=== PATIENT | female | born 1940 | race Caucasian/White ===

== ENCOUNTER 2025-02-18 19:12 | Outpatient (CLI) | payer MEDICARE, BC, SELFPAY | END 2025-02-18 19:13 | disposition home or self-care (01) | LOC: AMB 02-19 12:59 | PROVIDERS: PCP Family Medicine; Visit Provider Emergency Medicine Emergency Medical Services | DX: R42 Dizziness and giddiness (principal); R25.9 Unspecified abnormal involuntary movements | CPT/HCPCS: A0425; A0429 ==

== ENCOUNTER 2025-02-18 19:43 | Emergency (ER) | payer MEDICARE, BC, SELFPAY ==
--- OUTSIDE RECORDS SUMMARY | 2025-02-18 19:45 | XMS_ITS | Clinical Summary ---
Author Organization [facility] Address [address] [place] [address] Care Team Providers Care Cargo Bracer Name Role Phone Latha Jiang DO Primary Care Provider [phone] Allergies No known active allergies Medications calcium combo no.2-vit. D3 600 mg-12.5 mcg (500 unit) Extended-Release tablet Take 2 Tablets by mouth once daily. 3 Active psyllium husk 3.4 gram/5.4 gram powd Mix 1 Dose in liquid then take by mouth once daily. 3 Active triamcinolone (ARISTOCORT; KENALOG) 0.1 % creamIndications :Rectal irritation Apply topically to affected area(s) three times daily. 80 g 3 4 Active latanoprost (XALATAN) 0.005 % ophthalmic solution INSTILL ONE DROP INTO RIGHT EYE AT BEDTIME* 4 Active famotidine (PEPCID) 20 mg tabletIndication s:Gastroesophage al reflux disease without esophagitis Take 1 Tablet (20 mg) by mouth once daily. 90 Tablet 3 5 Active traZODone (DESYREL) 50 mg tabletIndication s:Insomnia, idiopathic Take 2 Tablets (100 mg) by mouth at bedtime. 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 Overview (09/05/2023): Squamous Cell carcinmoa - treated with surgery, chemo, radiation [facility] Gastroesophageal reflux disease 07/12/2010 Overview (09/05/2023): EGD 06/2010 Reactive gastropathy EGD 08/2015 normal Breast cancer 10/21/1988 Overview (11/21/2020): right side Lichen simplex chronicus Osteopenia after menopause Overview (12/19/2020): stable Dexa scans in 2004, 2020 Encounters Date Type Department Care Team Description 01/27/[address] [place] [address] Dasha Thomas PA Results 01/27/2025 Patient Outreach [address] [place] [phone] Dasha Thomas PA Results 01/27/2025 Orders Only [address] [facility] [phone] Dasha Thomas PA <No scans attached> 01/27/2025 Telephone [facility] [address] [place] [phone] Erickson Starr MD Results 01/25/2025 1:43 PM CDT - 01/25/2025 11:59 PM CDT Hospital Encounter [facility] [address] [place] [address] Dasha Thomas PA H/O breast reconstruction; Hx of breast cancer; Rupture of implant of left breast, initial encounter 01/25/2025 Travel 01/18/2025 8:21 AM CDT - 01/18/2025 11:59 PM CDT Hospital Encounter [facility] [address] [place] [address] Dasha Thomas PA H/O breast reconstruction; Hx of breast cancer; Rupture of implant of left breast, initial encounter 01/18/2025 Travel 01/11/2025 Orders Only [facility] [address] [place] [address] Dasha Thomas PA <No scans attached> 01/07/2025 10:00 AM CDT Ancillary Procedure [facility] [address] [place] [phone] 01/07/2025 Travel 12/25/2024 1:30 PM DIVER ASSISTANT Office Visit [facility] [address] [place] [address] [address] [place] [address] Noni Duarte MD Consult (Left implant has shifted up, very uncomfortable. ) 12/23/2024 Travel 12/22/2024 2:30 PM DIVER ASSISTANT Office Visit [facility] [address] [place] [address] Latha Jiang, Breast Problem (LEFT breast implant seems larger then right ) 12/22/2024 Travel 12/17/2024 Travel from Last 3 Months Immunizations Immunization Administration Dates Next Due Influenza, High-dose Inactivated 07/19/2014 Influenza, IIV3 (Age >=3 years) 08/20/2007,09/21,09/15/2002 Influenza, Inactivated AIIV4 (Age 65+ Years) Preserv Free 11/14/2020 Influenza, Inactivated IIV3 (Age 65+ Years) Preserv Free 08/03/2019 Pneumococcal Poly,23-Valent (Pneumovax) 04/14/20 08 TD, UNSPECIFIED 12/03/2000 Td (Age >=7 Years) 12/03/2000 Td, Preservative Free (age >= 7 Years) 4 Tdap 08/03/2019 Zoster (Shingrix-RZV, recombinant) 11/24/2019, Family History Medical History Relation Name Comments Osteoarthritis Mother Relation Name Status Comments Brother Alive Father (Age 90) old age Mother (Age 87) Osteoarthr itis Sister 1 Alive Sister 2 Alive Sister 3 Alive Sister 4 Alive Sister 5 Alive Social History Tobacco Use Types Packs/Day Years Used Date Smoking Tobacco: Never Passive Smoke Exposure: Past Smokeless Tobacco: Never Tobacco Cessation:Counseling Given: Yes Comments:many years ago as a teen Alcohol Use Standard Drinks/Week Comments No 0 (1 standard drink = 0.6 oz pur e alcohol) PHQ-2 Answer Date Recorded PHQ-2 TOTAL SCORE 0 10/27/2024 Social Connections Answer Date Recorded Do you often feel lonely or isolated from those around you? 0 10/26/2024 Financial Resource Strain Answer Date R ecorded Difficulty of Paying Living Expenses 3 10/26/2024 Difficulty of Paying Living Expenses Not on file 10/26/2024 Food Insecurity Answer Date Recorded Do you worry your food will run out before you are able to buy more? 1 10/26/2024 Transportation Needs Answer Date Record ed Does lack of transportation keep you from medica l appointments? 1 10/26/2024 Does lack of transportation keep you from work, meetings or getting things that you need? 1 10/26/2024 Housing Stability Answer Date Recorded What is your housing situation today? 1 10/26/2024 Utilities Answer Date Recorded Do you have trouble paying f or utilities (for example, heat, electricity, water, phone)? 1 10/26/2024 Comments No Sex and Gender Information Value Date Recorded Sex Assigned at Not on file Legal Sex Female 5:24 AM DIVER ASSISTANT Gender Identity Not on file Sexual Orientation Not on file Occupation Industry Job Start Date Job End Date Housekeeping Not on file Not on file Not on file Obstetrics History Last Filed Vital Signs Vital Sign Reading Time Taken Comments Blood Pressure 137/84 12/25/2024 1:19 PM DIVER ASSISTANT Pulse 70 12/25/2024 1:19 PM DIVER ASSISTANT Temperature 36.6 C (97.9 F) 01/22/2022 9:57 AM CDT Respiratory Rate 16 05/29/2021 8:37 AM CDT Oxygen Saturation 98% 12/25/2024 1:19 PM DIVER ASSISTANT Inhaled Oxygen Concentration - - Weight 60.7 kg (133 lb 14.4 oz) 12/22/2024 2:33 PM DIVER ASSISTANT Height 160 cm (5' 3) 10/27/2024 2:59 PM DIVER ASSISTANT Body Mass Index 23.72 10/27/2024 2:59 PM DIVER ASSISTANT Plan of Treatment Upcoming Encounters Date Type Department Care Team (Late st Contact Info) Description 03/11/2025 1:45 PM CDT Phone Office Visit [facility] [address] [place] [phone] Dasha Thomas PA [address] [facility] [address] [place] [address] 03/26/2025 3:15 PM CDT Office Visit [facility] [address] [place] [address] [address] [place] [address] Dasha Thomas PA [address] [facility] [address] [place] [address] Scheduled Procedures Name Priority Associated Diagnoses Date/Ti me SURGICAL PROCEDURE (TYPE PROCEDURE DESCRIPTION BELOW) Tier 4 Extrusion of breast implant, initial encounter Breast pain H/O breast reconstruction Capsular contracture of breast implant, initial encounter Health Maintenance Due Date Last Done Comments Pneumococcal series for age 50+ (2 of 2 - PCV) 04/14/2009 04/14/2008 RSV vaccine for adults or (1 - 1-dose 75+ series) 2015 COVID-19 vaccine series ( - season) 2024 10/19/2021, 12/27/2020 Influenza Vaccine (Season Ended) 2025 11/14/2020, 08/03/2019, 07/19/2014, Additional history exists BMI (ht and wt on same day) for age 18+ 10/27/2025 10/27/2024, 12/09/2023, 09/05/2023, Additional history exists Depression screening for age 12+ 10/27/2025 10/27/2024, 12/09/2023, 12/07/2022, Additional history exists Medicare Wellness for age 65+ 10/28/2025, 12/09/2023, 12/06/2022, Additional history exists Tetanus booster 08/03/2029 08/03/2019, 06/22, 12/03/2000, Additional history exists Tdap Completed 08/03/2019 Zoster (shingles) series for age 50+ Completed 11/24/2019, 08/03/2019 DEXA/DXA scan for age 65+ Completed 11/21/2020 Procedures Procedure Name Priority Date/Time Associated Diagnosis Comments US BIOPSY LYMPH NODE BREAST CENTER [facility] 01/25/2025 3:14 PM CDT H/O breast reconstruction Hx of breast cancer Rupture of implant of left breast, initial encounter PATH TISSUE EXAM Today 01/25/2025 2:50 PM CDT US AXILLA RIGHT BREAST CENTER [facility] 01/18/2025 8:44 AM CDT H/O breast reconstruction Hx of breast cancer Rupture of implant of left breast, initial encounter US BREAST UNILATERAL RIGHT LIMITED [facility] 01/18/2025 8:43 AM CDT H/O breast reconstruction Hx of breast cancer Rupture of implant of left breast, initial encounter MR BREAST WO BILATERAL Routine 01/07/2025 10:43 AM CDT Extrusion of breast implant, initial encounter Breast pain H/O breast reconstruction Capsular contracture of breast implant, initial encounter XR DXA BONE DENSITY 2 SITES AXIAL Routine 11/21/2020 8:54 AM DIVER ASSISTANT Other specified menopausal and perimenopausal disorders Screening for osteoporosis from Last 3 Months or Most Recently Relevant to Health Maintenance Results * US BIOPSY LYMPH NODE BREAST CENTER (01/25/2025 3:14 PM CDT) Anatomical Region Laterality Modality Breast Left Ultrasound 01/25/2025 3:14 PM CDT Addenda Addendum by Jennifer Lyman MD on 01/27/2025 1:55 PM CDT PATHOLOGY ADDENDUM: PATHOLOGY: Cores of benign lymph node with reactive features. Negative for metastatic carcinoma in the sampling. CONCORDANCE: Concordant RECOMMENDATION: Clinical follow-up. Pathology comment states that if clinical concern should persist regarding this lymphadenopathy, then consideration could be given for excisional biopsy with lymphoma workup. END ADDENDUM Impressions 01/25/2025 4:21 PM CDT 1. Ultrasound-guided biopsy of a lymph node in the right axilla. Pathology pending. Narrative 01/25/2025 4:21 PM CDT For Patients: As a result of the Cures Act, medical imaging exams and procedure reports are released immediately into your electronic medical record. You may view this report before your referring provider. If you have questions, please contact your health care provider. EXAM: US BIOPSY LYMPH NODE BREAST CENTER LOCATION: [facility] DATE: 01/25/2025 INDICATION: Right axilla lymph node. Patient has history of breast cancer status post bilateral mastectomy with implant reconstruction. LESION DESCRIPTION: Abnormal thickened and enlarged right axillary lymph node. LOCATION: Right axilla SIZE: 2.7 x 1.2 x 2.2 cm NUMBER OF CORES: 3 CLIP SHAPE: 01/25/2025 PROCEDURE: Informed consent was obtained from the patient. Ultrasound was used to localize the lymph node. The skin was marked, then prepped and draped in sterile fashion. 1% lidocaine was used for local anesthesia. A small dermatotomy was made to accommodate the biopsy needle. Under direct sonographic guidance, a 14 gauge coaxial needle was placed next to the lymph node and core needle samples were obtained. A biopsy clip was then placed. Ultrasound showed the clip to be in good position. us Dasha BUNN US Edited Result - Final * PATH TISSUE EXAM (01/25/2025 2:50 PM CDT) Case Report Pathology Report Case: [id number] Authorizing Provider: Dasha Thomas PA Collected: 01/25/2025 1450 Ordering Location: [facility] Received: 01/25/2025 1518 [facility] Pathologist: Bryson Gregory MD Specimen: Right Axillary Lymph Node 01/27/2025 1:29 PM CDT [facility] Final Diagnosis A) LYMPH NODE, RIGHT AXILLARY, ULTRASOUND-GUIDED CORE BIOPSY: 1. Cores of benign lymph node with reactive features 2. Negative for metastatic carcinoma in this sampling 3. See comment 01/27/2025 1:29 PM CDT [facility] at 1329 CDT Comment A) The histologic an d immunohistochemical features are compatible with that of a benign reactive lymph node. There is no evidence of metastatic carcinoma in this sampling. If clinical concern should persist regarding this lymphadenopathy, then consideration could be given to an excisional biopsy with lymphoma work-up, as clinically indicated. This is an image-guided breast biopsy. The pathologic findings should be correlated with radiologic and clinical findings prior to treatment decisions. Case seen in consultation with Dr. Petit. 01/27/2025 1:29 PM CDT [facility] Clinical Information INDICATION: Right axilla lymph node. Patient has history of breast cancer status post bilateral mastectomy with implant reconstruction. LESION DESCRIPTION: Abnormal thickened and enlarged right axillary lymph node. LOCATION: Right axilla SIZE: 2.7 x 1.2 x 2.2 cm 01/27/2025 1:29 PM CDT [facility] Gross Description A) Label: Patient's name and RT axillary lymph node US core BX Description: 4 Fibrofatty core biopsies Size: 0.9-2.0 cm in length by 0.2 cm in diameter Ink color: Green The specimen is submitted in toto in one cassette. Cold ischemic time: Less than 60 minutes, meets current ASCO/CAP guidelines. The specimen was fixed in formalin for a minimum of 6 hours and not longer than 72 hours. DS 01/25/2025 01/27/2025 1:29 PM CDT [facility] Microscopic Description The final diagnosis is based on microscopic examination of appropriate sections of all specimens A) The presence of green ink is confirmed on tissue sections. Immunostains are performed on block A1 and the results follow: CD3: Highlights frequent small T cells (interfollicular pattern) CD5: Positive in T-cell distribution CD10: Highlights scattered germinal centers CD20: Highlights B cells (follicular pattern) CD21: Highlights underlying follicular dendritic cell meshworks CD23: Highlights underlying follicular dendritic cell meshworks and mantle zone B cells CD30: Highlights scattered immunoblasts (variable intensity) CD43: Positive in T-cell distribution BCL1: Negative in lymphoid cells BCL2: Positive with normal germinal center sparing BCL6: Positive in germinal centers Ki67: Physiologically increased in germinal centers, low elsewhere 01/27/2025 1:29 PM CDT [facility] Additional Information Interpreted at [facility] - [address] [place] [address] [address], [place] [address] Immunohistochemistry controls were reviewed and approved as appropriate by the pathologist during this examination. 01/27/2025 1:29 PM CDT [facility] Other (Right Axillary Lymph Node) 01/25/2025 2:50 PM CDT 01/25/2025 3:18 PM CDT Dasha BUNN PATHOLOGY/CYTOLOGY Esther l Result [facility] [address] [place] [address], [place] * US AXILLA RIGHT BREAST (01/18/2025 8:44 AM CDT) Anatomical Region Laterality Modality Right Ultrasound 01/18/2025 8:44 AM CDT Impressions 01/18/2025 9:06 AM CDT ACR BI-RADS Category 4: Suspicious. Results given to the patient and her daughter. Ultrasound-guided biopsy of an enlarged right axillary lymph node is recommended. We will assist the patient in scheduling a biopsy. Narrative 01/18/2025 9:06 AM CDT For Patients: As a result of the Century Cures Act, medical imaging exams and procedure reports are released immediately into your electronic medical record. You may view this report before your referring provider. If you have questions, please contact your health care provider. EXAM: ULTRASOUND BREAST UNILATERAL RIGHT LIMITED LOCATION: [facility] DATE: 01/18/2025 INDICATION: Status post bilateral mastectomy with implant reconstruction. Patient presents for further evaluation of right axillary lymph nodes and a right breast mass seen on recent breast MRI. COMPARISON: MRI 01/07/2025. ULTRASOUND FINDINGS: Targeted ultrasound at the 8:00 right breast 10 cm from the nipple demonstrates a normal-appearing lymph node with thin cortex and echogenic fatty hilum measuring 8 x 7 x 5 mm. This is felt to correspond to the MRI finding. Targeted ultrasound of the right axilla was performed. There are 5 abnormal appearing lymph nodes with loss of the echogenic fatty hilum and cortical thickening. The largest lymph node measures 2.7 x 1.2 x 2.2 cm. Ultrasound-guided biopsy is recommended. us Dasha BUNN US Final R esult * US BREAST UNILATERAL RIGHT LIMITED (01/18/2025 8:43 AM CDT) Anatomical Region Laterality Modality BREASTS, Breast Right Right Ultrasound 01/18/2025 8:43 AM CDT Impressions 01/18/2025 9:06 AM CDT ACR BI-RADS Category 4: Suspicious. Results given to the patient and her daughter. Ultrasound-guided biopsy of an enlarged right axillary lymph node is recommended. We will assist the patient in scheduling a biopsy. Narrative 01/18/2025 9:06 AM CDT For Patients: As a result of the Century Cures Act, medical imaging exams and procedure reports are released immediately into your electronic medical record. You may view this report before your referring provider. If you have questions, please contact your health care provider. EXAM: ULTRASOUND BREAST UNILATERAL RIGHT LIMITED LOCATION: [facility] DATE: 01/18/2025 INDICATION: Status post bilateral mastectomy with implant reconstruction. Patient presents for further evaluation of right axillary lymph nodes and a right breast mass seen on recent breast MRI. COMPARISON: MRI 01/07/2025. ULTRASOUND FINDINGS: Targeted ultrasound at the 8:00 right breast 10 cm from the nipple demonstrates a normal-appearing lymph node with thin cortex and echogenic fatty hilum measuring 8 x 7 x 5 mm. This is felt to correspond to the MRI finding. Targeted ultrasound of the right axilla was performed. There are 5 abnormal appearing lymph nodes with loss of the echogenic fatty hilum and cortical thickening. The largest lymph node measures 2.7 x 1.2 x 2.2 cm. Ultrasound-guided biopsy is recommended. us Dasha BUNN US Final R esult * MR BREAST WO BILATERAL (01/07/2025 10:43 AM CDT) Anatomical Region Laterality Modality Breast Right, Breast Left Bilateral Magnet ic Resonance 01/08/2025 9:33 AM CDT Addenda Addendum by Zoë Hammonds MD on 01/11/2025 9:12 AM CDT Addendum for typographical error in findings. The left implant is ruptured. The right implant is intact. No change to impression and recommendation. Narrative 01/08/2025 11:46 AM CDT For Patients: As a result of the Cures Act, medical imaging exams and procedure reports are released immediately into your electronic medical record. You may view this report before your referring provider. If you have questions, please contact your health care provider. BILATERAL BREAST MRI WITHOUT GADOLINIUM, 01/07/2025 CLINICAL HISTORY: Personal history of BILATERAL mastectomies with implant reconstruction now with symptoms of capsular contracture. Evaluate for implant integrity. COMPARISON: None. CONTRAST: None. TECHNIQUE: The patient was positioned prone and scanned using a breast coil. Several imaging sequences of both breasts were obtained using 1-1.5 mm thick slices with no gap including T2-weighted and silicone selective sequences in axial and sagittal planes. BILATERAL BREAST MRI FINDINGS: Postsurgical changes of BILATERAL mastectomies with retropectoral implant reconstruction. The LEFT implant is intact. No intracapsular rupture or extracapsular silicone extravasation. There is intracapsular rupture of the RIGHT implant. No extracapsular silicone extravasation. In the outer central reconstructed RIGHT breast at mid to posterior depth there is a 0.8 x 0.6 cm oval mass, or possibly lymph node however no definite fatty hilum is seen to confirm a lymph node. There is no silicone signal. There are enlarged lymph nodes with rounded morphology in the high RIGHT axilla. The level 1 lymph node measures 1.7 x 1.4 cm and the adjacent level 2 lymph node measures 1.8 x 1.5 cm. There is no silicone signal within lymph nodes. No abnormal morphology lymph nodes on the LEFT. IMPRESSIONS AND RECOMMENDATIONS: 1. Intracapsular rupture of the LEFT silicone implant. No extracapsular silicone. 2. The RIGHT silicone implant is intact. 3. Possible lymph node or mass in the outer central reconstructed RIGHT breast. Recommend targeted RIGHT breast ultrasound for further evaluation. 4. Two enlarged RIGHT axillary lymph nodes which do not contain silicone. Recommend RIGHT axillary ultrasound for further evaluation. Note: This study is designed to evaluate for implant rupture and is not a breast cancer screening study. BI-RADS Category 0: Incomplete, need additional imaging evaluation Dictated by: Zoë Hammonds MD @01/08/2025 9:33:12 AM/roger us Dasha BUNN MR Edited Result - Final * (ABNORMAL) XR DXA BONE DENSITY 2 SITES AXIAL (11/21/2020 8:54 AM DIVER ASSISTANT) Anatomical Region Laterality Modality Spine, HIPS, HIPL, HIPR Other Narrative 11/28/2020 9:30 AM DIVER ASSISTANT PATIENT NAME: Beth Packer DATE OF : 1940 EXAM DATE: 11-21-20 INDICATION: FOLLOW UP OF EXISTING OSTEOPENIA TECHNIQUE: Dual-energy x-ray absorptiometry performed with routine technique. COMPARISON: 2004 RISK FACTORS: NO RISK FACTORS FINDINGS- see scanned imaging for BMD values: Lumbar Spine: [L1-L4]: T-score: [ -0.3]. Z-score: [1.7 ] RIGHT Hip Total: T-score: [-1.8 ]. Z-score: [0.4 ] RIGHT Hip Femoral neck: T-score: [-1.4 ]. Z-score: [0.9 ] LEFT Hip Total: T-score: [-1.7 ]. Z-score: [ 0.5] LEFT Hip Femoral neck: T-score: [-1.2 ]. Z-score: [1.1] COMPARISON: There has been a 0.03% increase in lumbar spine BMD. There has been a -0.142% decrease in hip BMD. FRAX Results: 10-year probability of major osteoporotic fracture is 12.7%, and of hip fracture is 3.0%. IMPRESSION/RECOMMENDATIONS: [1. Using T score] LOW BONE DENSITY (OSTEOPENIA). - There has been a statistically significant worsening of BMD since last DXA at the hip. - General bone health recommendations include exercise 3x/week, vitamin d 800-2000iu daily, calcium 1200-1500mg daily, and no smoking should be optimized. - Based on current guidelines, consider treatment if major osteoporotic fracture score is greater than or equal to 20%. Consider treatment if hip fracture score is greater than or equal to 3%. The patient does meet this criteria. - T score meets the World Health Organization (WHO) criteria for low bone density (osteopenia) at one or more measured sites. The risk of osteoporotic fracture increased approximately two-fold for each SD decrease in T-score. REPEAT BONE DENSITY SCAN IN 2 YEARS. Serial BMD testing can be used in this patient to determine whether treatment should begin (a significant loss may indicate the need for treatment) or to monitor response to therapy. Danielle Qursehi PA-C [facility] 11/28/2020 Patrick Blas DO DEXA Final Result from Last 3 Months or Most Recently Relevant to Health Maintenance Insurance [facility] [place] [address] [facility] MEDICARE PART B HB ONLY Advance Directives Documents on File Type Date Recorded Patient Loader Engineer Expl anation Healthcare Directive 02/24/2021 021 Care Teams Cargo Bracer Relationship Specialty Start Date End Date Latha [place] [address] PCP - General Family Practice 09/05/23
[2025-02-18 19:58] VITALS: BP 153/87; PULSE 70; RESP 18; TEMP 36.5; O2SAT 98; BMI 23.8
--- NOTE | 2025-02-18 20:10 | ED_ITS ---
HPI - General Adult General Date Seen: 02/18/25 Chief complaint: Anxiety Stated complaint: dizzy, difficulty breathing, weak Time Seen by Provider: 02/18/25 20:07 History of Present Illness HPI narrative: 84-year-old female brought to the ER today by EMS from her home. Per EMS, she got up to go to the bathroom and felt shaky and weak. She does not have any past medical records in the [facility] system. 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 Med list currently includes calcium/vitamin-D, famotidine, Xalatan eyedrops, psyllium, trazodone, triamcinolone cream History is obtained from the patient and supplemented in large part by her very attentive daughter and son. It sounds like she is generally a very healthy and athletic 84 your patient. She lives independently and most days when the weather is nice she rides her bike 3 miles from [facility] to [place] and back. 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 She has been experiencing double vision for the past couple of months, at least since November may be longer than that. It is unclear, but she may actually have seen her eye doctor for this double vision. Unclear what the eye doctor's recommendations were. The patient says that she has double vision when looking straight ahead but when she tips her chin up and looks down with her eyes, she tends to have single vision. The double vision has not been changing lately and it sounds like it generally does not affect her life. What brought her to the ER tonight was that this evening she had an episode of dizziness or unsteadiness. History is a little bit vague because the patient just cannot give a clear chronological and precise description of her symptoms. She says that she has been having some episodes of unsteadiness ?during the evenings,? lately. It sounds like they happen several evenings frequently or almost every evening this week. Unclear if it happened yesterday evening or not. Today she was feeling well. She was not out for a bike ride because it was rainy but she did go visit her neighbor this afternoon and got home roughly 4-6 p.m.. After she got home she apparently was feeling tired so she went to rest in her bed. She felt the need to go to the bathroom when she was in bed so she got up to go to the bathroom. Because of her history of anal cancer she has limited ability to control her stool so typically needs to move urgently to the bathroom to avoid incontinence. When she got up she just felt very unsteady and very shaky. She also was short of breath. She says she had trouble balancing and had to lean against the scanlon. She does not recall specific spinning vertigo or rocking vertigo. She did not have a headache. She did not have any new double vision but that her previous double vision was present and unchanged. She did not have any trouble with her hearing or tinnitus. She did not have any chest pain. She did not feel any palpitations. She was not nauseous. She was not having abdominal pain but did have an urgency to stool. She was so unsteady that she could not make it to the bathroom. 911 was called. At some point during this process she ultimately was incontinent of stool, but that is likely because of her previous anal cancer surgery. She is not having any back pain. No urinary difficulty. No numbness or tingling or pain in her legs. Since arriving to the ER she is feeling better. She is no longer shaky or unsteady. She feels back to normal. She is hard of hearing and does not have her hearing aids in. Related Data Home Medications ?Medication ?Instructions ?Recorded ?Confirmed famotidine 20 mg tablet 20 mg PO DAILY 02/18/25 02/18/25 trazodone 50 mg tablet 100 mg PO QPM 02/18/25 02/18/25 [facility] Social History service: No Exam Narrative: Exam Narrative: Constitutional: Appears well-developed and well-nourished. Alert. Conversant. Non toxic. Her son and daughter are standing next to her bed. I invite them to sit down but they remain standing directly at her side. At times her son and daughter often talk over her and trying to help encourage her to give answers to questions. HENT: Head: Atraumatic. Nose: Nose normal. Mouth/Throat: Oral mucosa is clear and moist. no trismus. Pharynx normal. Tonsils symmetric. No tonsillar enlargement, erythema, or exudate. Eyes: Conjunctivae normal. EOM appear normal. She has double vision that is present when she looks straight ahead but goes away when she tips her head up and moves her eyes down. Double vision also seems to be worse when she looks to the right than when she looks to the left. I do not see any definite extraocular muscle entrapment or clear unilateral ocular nerve palsy. Pupils equal, round, and reactive to light. No scleral icterus. Neck: Normal range of motion. Neck supple. No tracheal deviation present. No tenderness. Cardiovascular: Normal rate, regular rhythm. No gallop. No friction rub. No m urmur heard. Symmetric radial and PT artery pulses Pulmonary/Chest: Effort normal. No stridor. No respiratory distress. No wheezes. No rales. No rhonchi . No tenderness. Abdominal: Soft. Bowel sounds normal. No distension. No mass. No tenderness. No rebound. No guarding. No pulsatile mass. Musculoskeletal: RUE: Normal range of motion. No tenderness. No deformity LUE: Normal range of motion. No tenderness. No deformity RLE: Normal range of motion. No edema. No tenderness. No deformity LLE: Normal range of motion. No edema. No tenderness. No deformity Neurological: Mental status normal. Attention normal. Alert and oriented x3. GCS 15. Memory normal. Speech fluent. Cognition normal. Cranial Nerves intact II-XII except I did not formally test gag or visual acuity. EOMI. Palate elevates symmetrically and tongue protrudes in the midline. Strength: 5/5 trapezius on the right and left 5/5 deltoid on the right and left 5/5 biceps on the right and left 5/5 triceps on the right and left 5/5 securities compliance examiner on the right and left 5/5 thumb opposition on the right and le ft 5/5 finger abduction on the right and le ft 5/5 hip flexors (L3) on the right and le ft 5/5 quadriceps (L4) on the right and lef t 5/5 tibialis anterior on the right and l eft 5/5 EHL (L5) on the right and left 5/5 gastrocnemius (S1) on the right and left 5/5 hamstring on the right and left Sensation intact to light touch in both upper extremities (C4-T1) Sensation intact to light touch in Both lower extremities (L4-S1). Finger to nose and coordination normal. Gait normal. She has no ataxia or unsteadiness. Romberg normal. Skin: Skin is warm and dry. No rash noted. No pallor. Normal capillary refill. Psychiatric: Normal mood. Normal affect. Polite. Per EMS the patient appeared quite anxious prior to arrival. She is calm now. if anything she seems to be minimizing her symptoms. Const: Vital Signs, click to edit/add: Vital Signs - 24 hr 02/18/25 19:58 Temperature 97.7 F Pulse Rate [Right Pulse Oximeter] 70 Respiratory Rate 18 Blood Pressure [Ri ght Upper Arm] 153/87 H Pulse Oximetry 98 Oxygen Delivery Me thod Room Air Course Vital Signs Vital signs: Initial Vital Signs Temperature 97.7 F 02/18/25 19:58 Temperature Source Temporal Artery Scan 02/18/25 19:58 Pulse Rate 70 02/18/25 19:58 Respiratory Rate 18 02/18/25 19:58 Blood Pressure 153/87 H 02/18/25 19:58 Blood Pressure Mean 109 H 02/18/25 19:58 Blood Pressure Position Sitting 02/18/25 19:58 Pulse Oximetry 98 02/18/25 19:58 Oxygen Delivery Method Room Air 02/18/25 19:58 Vital Signs Temperature 97.7 F 02/18/25 19:58 Pulse Rate 70 02/18/25 19:58 Respiratory Rate 18 02/18/25 19:58 Blood Pressure 153/87 H 02/18/25 19:58 Pulse Oximetry 98 02/18/25 19:58 Oxygen Delivery Method Room Air 02/18/25 19:58 Temperature 97.7 F 02/18/25 19:58 Pulse Rate 70 02/18/25 19:58 Respiratory Rate 18 02/18/25 19:58 Blood Pressure 153/87 H 02/18/25 19:58 Pulse Oximetry 98 02/18/25 19:58 Oxygen Delivery Method Room Air 02/18/25 19:58 Medical Decision Making MDM Narrative Medical decision making narrative: Very pleasant 84-year-old female presenting to the ER today with an episode of dizziness and unsteadiness and shakiness that was severe enough that she was brought in by EMS from home. Now that she is here in the ER symptoms have resolved and she is feeling better. She has had several episodes of dizziness and shakiness similar this lately but the episode tonight was the most severe and distressing to the patient. It sounds like she is generally steady and active during the day and these episodes tend to occur for her during the evening, but not at night because she does not get out of bed to go to the bathroom at night.. Differential here is quite broad. She does not describe any chest pain or palpitations but consider possible cardiac arrhythmia that came and went tonight. He is asymptomatic here in the ER and her EKG shows a sinus rhythm. She has nonspecific T-wave flattening but no ST segment elevation or depression. Screening troponin is undetectable. PE very unlikely because the transitory nature of the symptoms. She is not hypoxic, tachycardic, persistently short of breath. She has no exam findings of DVT. No history of clotting disorder. No known history of cancer. Also consider possible anemia as a cause for dizziness but would expect her to be more persistently symptomatic if she were currently anemic. Also consider electrolyte disturbances such as hyponatremia, hypernatremia, hypokalemia, renal insufficiency, hypoglycemia. With her diplopia ongoing for the past couple months and now these episodes of dizziness, I am concerned about possible CHANNEL DEVELOPMENT MANAGER pathology. Differential here would include growing brain tumor, partial seizure, TIA or stroke. MRI would be the more sensitive test to look for stroke, tumor, or subtle lesions like MS. However, MRI is not available to me here in the ER tonight. Patient and her family do not want her to be admitted for observation or MRI tomorrow. However they will at least consent to obtain a quick noncontrast head CT scan today. I had a discussion with the patient her family about the broad differential here. I think he certainly could have grounds here to recommended admission for overnight cardiac monitoring, neuro monitoring, obtain MR imaging tomorrow of he r brain for more thorough and proper workup. However they strongly prefer to go home. I have discussed with my oncoming partner, Dr. Stanton. He will follow up on all of this patient's outstanding test results. If she has abnormal findings, he will notify the patient and her family and disposition accordingly. If lab tests and imaging are all normal, she will discharge home with a plan for o utpatient follow-up and further outpatient workup. I have placed preliminary discharge instructions in the patient's chart in case her workup is negative and she ultimately discharged. Lab Data Labs: Lab Results 02/18/25 Range/Units 21:12 POC Troponin I 0.00 L (0.01-0.04) ng/ml ECG Data Attestation: I personally reviewed and interpreted this ECG as follows: Interpretation: Normal sinus rhythm Rate: 69 WI: 172 QRS axis: Normal axis. ST segment/T wave: Nonspecific T-wave flattening in V2, V3, aVL. T-wave inversion in V1 and AVR. No ST segment elevation or depression. QTc: 460. Discharge Plan Discharge Clinical Impression: Dizziness, Diplopia Patient Disposition: Home w/ Parent or Adult Condition: Stable Instructions: Dizziness (ED), Diplopia (ED) Additional Instructions: Based on your workup so far the cause for symptoms is not clear. I think the symptoms are concerning and require further workup. Since he do not stay in the hospital, please follow-up with your regular doctor soon as possible for recheck. You may need further testing with cardiac monitoring, brain scans, and further workup. Remember, if you have any more episodes of dizziness or other concerning symptoms, you should come back to the ER right away to be rechecked. Prescriptions: No Action trazodone 50 mg tablet 100 mg PO QPM famotidine 20 mg tablet 20 mg PO DAILY Follow Up/Referrals: Patrick Blas DO [Primary Care Provider] - Stand Alone Forms: [employer] Info Instructions
--- NOTE | 2025-02-18 20:47 | CRLHL7_ITS ---
For Patients: As a result of the Century Cures Act, medical imaging exams and procedure reports are released immediately into your electronic medical record. You may view this report before your referring provider. If you have questions, please contact your health care provider. TECHNIQUE: Multiplanar CT examination of the head was performed without the use of intravenous contrast. INDICATION: Dizziness. COMPARISON: None. FINDINGS: No loss of dorsey-white differentiation to suggest recent territorial infarct. No intracranial hemorrhage, abnormal extra-axial fluid collection, hydrocephalus or midline shift. The ventricles and cerebral sulci are prominent caliber, compatible with mild generalized parenchymal volume loss. There is ill-defined hypoattenuation of the supratentorial white matter diffusely, nonspecific but consistent with chronic microvascular ischemic changes. The basal cisterns are patent. Atherosclerotic calcifications of the intracranial ICA segments bilaterally. The paranasal sinuses and mastoid air cells remain clear. The orbits and calvarium are unremarkable. The cerebellar tonsils are normal position. IMPRESSION: 1. No acute intracranial findings. 2. Mild generalized parenchymal volume loss with chronic microvascular ischemic changes. Please note that all CT scans at this facility use dose modulation, iterative reconstruction, and/or weight-based dosing when appropriate to reduce radiation dose to as low as reasonably achievable. Dictated by Dejon Faith MD @ 02/18/2025 10:19:43 PM (Electronically Signed)
[2025-02-18 20:59] LABS: Appearance Urine Clear (Clear); Bilirubin Urine Negative (Negative); Blood Urine 1+ (Negative); Glucose Urine Negative (Negative); Ketones Urine Negative (Negative); Leukocyte Esterase Urine Trace (Negative); Nitrite Urine Negative (Negative); Protein Urine Negative (Negative); Specific Gravity Urine 1.015 (1.000-1.030); Urobilinogen Urine 0.2 (0.2-1.0)
[2025-02-18] MEDS: 0.9 % SODIUM CHLORIDE 1000 ml 1,000 ML IV (21:15)
[2025-02-18 21:25] LABS: Lactate* 1.1 mmol/L (0.5-1.9)
--- NOTE | 2025-02-18 21:28 | CRLHL7_ITS ---
For Patients: As a result of the Cures Act, medical imaging exams and procedure reports are released immediately into your electronic medical record. You may view this report before your referring provider. If you have questions, please contact your health care provider. INDICATION: Dizziness. TECHNIQUE: Chest radiographs, 2 views. COMPARISON: None. FINDINGS: Cardiovascular/Mediastinum: Normal heart size. Unremarkable. Lungs: No focal consolidation. Linear bandlike opacification of the lungs bilaterally, likely subsegmental atelectasis and/or scarring. Airways: Trachea remains midline. Pleura: No pleural effusions or pneumothorax. Bones: No acute osseous abnormalities. Upper abdomen: Unremarkable. IMPRESSION: No acute cardiopulmonary process. Dictated by Dejon Faith MD @ 02/18/2025 10:15:24 PM (Electronically Signed)
[2025-02-18 21:33] LABS: Color Urine Straw (Yellow)
[2025-02-18 21:37] LABS: Bacteria Urine Few; RBC Urine 0-2 (0-2); Squamous Epithelial Cell Urine Few (None-Few)
[2025-02-18 21:42] LABS: Chloride* 102 mmol/L (96-114); Sodium* 137 mmol/L (135-149)
[2025-02-18 21:45] LABS: Anion Gap 7 mEq/L (7-15); Blood Urea Nitrogen* 19 mg/dL (7-30); Carbon Dioxide* 28 mmol/L (20-32); Creatinine* 0.8 mg/dL (0.5-1.5); Est. Creatinine Clearance* 33.12; Estimated Glomerular Filt Rate 73 ml/min
[2025-02-18 21:46] LABS: Calcium* 9.5 mg/dL (8.4-10.6); Glucose* 101 mg/dL (60-115)
--- OUTSIDE RECORDS SUMMARY | 2025-02-18 21:48 | XMS_ITS | Clinical Summary ---
Author Organization [employer] [facility] Address [address] [place] [address] Care Team Providers Care Textiles Sales Representative Name Role Phone Latha Jiang DO Primary Care Provider [phone] Allergies No known active allergies Medications calcium [...] carcinmoa - treated with surgery, chemo, radiation [facility] Gastroesophageal reflux disease 07/12/2010 Overview (09/05/2023): EGD 06/2010 Reactive gastropathy EGD 08/2015 normal Breast cancer 10/21/1988 Overview (11/21/2020): right side Lichen simplex chronicus Osteopenia after menopause Overview (12/19/2020): stable Dexa scans in 2004, 2020 Encounters Date Type Department Care Team Description 01/27/[address] [facility] [place] [address] Dasha Thomas PA Results 01/27/2025 Patient Outreach [address] [place] [phone] Dasha Thomas PA Results 01/27/2025 Orders Only [address] [facility] [place] [phone] Dasha Thomas PA <No scans attached> 01/27/2025 Telephone [facility] [place] [address] [place] [id number] Erickson Starr MD Results 01/25/2025 1:43 PM CDT - 01/25/2025 11:59 PM CDT Hospital Encounter [facility] [address] [place] [address] Dasha Thomas PA H/O breast reconstruction; Hx of breast cancer; Rupture of implant of left breast, initial encounter 01/25/2025 Travel 01/18/2025 8:21 AM CDT - 01/18/2025 11:59 PM CDT Hospital Encounter [facility] [address] [place] [address] Dasha Thomas PA H/O breast reconstruction; Hx of breast cancer; Rupture of implant of left breast, initial encounter 01/18/2025 Travel 01/11/2025 Orders Only [facility] [address] [place] [address] Dasha Thomas PA <No scans attached> 01/07/2025 10:00 AM CDT Ancillary Procedure [facility] [address] [place] [phone] 01/07/2025 Travel 12/25/2024 1:30 PM SUPERINTENDENT BUILDING Office Visit [facility] [address] [place] [address] [address] [place] [address] Noni Duarte MD Consult (Left implant has shifted up, very uncomfortable. ) 12/23/2024 Travel 12/22/2024 2:30 PM SUPERINTENDENT BUILDING Office Visit [facility] [address] [place] [address] Latha Jiang, Breast Problem (LEFT breast implant [...] on file Legal Sex Female 5:24 AM SUPERINTENDENT BUILDING Gender Identity Not on file Sexual Orientation Not on file Occupation Industry Job Start Date Job End Date Housekeeping Not on file Not on file Not on file Obstetrics History Last Filed Vital Signs Vital Sign Reading Time Taken Comments Blood Pressure 137/84 12/25/2024 1:19 PM SUPERINTENDENT BUILDING Pulse 70 12/25/2024 1:19 PM SUPERINTENDENT BUILDING Temperature 36.6 C (97.9 F) 01/22/2022 9:57 AM CDT Respiratory Rate 16 05/29/2021 8:37 AM CDT Oxygen Saturation 98% 12/25/2024 1:19 PM SUPERINTENDENT BUILDING Inhaled Oxygen Concentration - - Weight 60.7 kg (133 lb 14.4 oz) 12/22/2024 2:33 PM SUPERINTENDENT BUILDING Height 160 cm (5' 3) 10/27/2024 2:59 PM SUPERINTENDENT BUILDING Body Mass Index 23.72 10/27/2024 2:59 PM SUPERINTENDENT BUILDING Plan of Treatment Upcoming Encounters Date Type Department Care Team (Late st Contact Info) Description 03/11/2025 1:45 PM CDT Phone Office Visit [facility] [address] [place] [address] Dasha Thomas PA [address] [facility] [address] [place] [address] 03/26/2025 3:15 PM CDT Office Visit [facility] [address] [place] [address] [address] [place] [address] Dasha Thomas PA [address] [facility] [address] [place] [address] Scheduled Procedures Name Priority Associated Diagnoses Date/Ti [...] Comments US BIOPSY LYMPH NODE BREAST CENTER [facility] 01/25/2025 3:14 PM CDT H/O breast reconstruction Hx of breast cancer Rupture of implant of left breast, initial encounter PATH TISSUE EXAM Today 01/25/2025 2:50 PM CDT US AXILLA RIGHT BREAST CENTER [facility] 01/18/2025 8:44 AM CDT H/O breast reconstruction Hx of breast cancer Rupture of implant of left breast, initial encounter US BREAST UNILATERAL RIGHT LIMITED [facility] 01/18/2025 8:43 AM CDT H/O breast reconstruction Hx of breast cancer Rupture of implant of left breast, initial encounter MR BREAST WO BILATERAL Routine 01/07/2025 10:43 AM CDT Extrusion of breast implant, initial encounter Breast pain H/O breast reconstruction Capsular contracture of breast implant, initial encounter XR DXA BONE DENSITY 2 SITES AXIAL Routine 11/21/2020 8:54 AM SUPERINTENDENT BUILDING Other specified menopausal and perimenopausal disorders Screening [...] US BIOPSY LYMPH NODE BREAST CENTER LOCATION: [facility] DATE: 01/25/2025 INDICATION: Right axilla lymph node. [...] PM CDT) Case Report Pathology Report Case: [id number] Authorizing Provider: Dasha Thomas PA Collected: 01/25/2025 1450 Ordering Location: [facility] Received: 01/25/2025 1518 [facility] Pathologist: Bryson Gregory MD Specimen: Right Axillary Lymph Node 01/27/2025 1:29 PM CDT [facility] Final Diagnosis A) LYMPH NODE, RIGHT AXILLARY, ULTRASOUND-GUIDED CORE BIOPSY: 1. Cores of benign lymph node with reactive features 2. Negative for metastatic carcinoma in this sampling 3. See comment 01/27/2025 1:29 PM CDT [facility] at 1329 CDT Comment A) The [...] with Dr. Petit. 01/27/2025 1:29 PM CDT [facility] Clinical Information INDICATION: Right axilla lymph node. Patient has history of breast cancer status post bilateral mastectomy with implant reconstruction. LESION DESCRIPTION: Abnormal thickened and enlarged right axillary lymph node. LOCATION: Right axilla SIZE: 2.7 x 1.2 x 2.2 cm 01/27/2025 1:29 PM CDT [facility] Gross Description A) Label: Patient's [...] hours. DS 01/25/2025 01/27/2025 1:29 PM CDT [facility] Microscopic Description The final diagnosis [...] centers, low elsewhere 01/27/2025 1:29 PM CDT [facility] Additional Information Interpreted at [facility] - [address] [place] [address] [address], [place] [address] Immunohistochemistry controls were reviewed and approved as appropriate by the pathologist during this examination. 01/27/2025 1:29 PM CDT [facility] Other (Right Axillary Lymph Node) 01/25/2025 2:50 PM CDT 01/25/2025 3:18 PM CDT Dasha BUNN PATHOLOGY/CYTOLOGY Esther l Result [facility] [address] [place] [address], [place] * US AXILLA RIGHT BREAST (01/18/2025 [...] EXAM: ULTRASOUND BREAST UNILATERAL RIGHT LIMITED LOCATION: [facility] DATE: 01/18/2025 INDICATION: Status post bilateral mastectomy [...] EXAM: ULTRASOUND BREAST UNILATERAL RIGHT LIMITED LOCATION: [facility] DATE: 01/18/2025 INDICATION: Status post bilateral mastectomy [...] DENSITY 2 SITES AXIAL (11/21/2020 8:54 AM SUPERINTENDENT BUILDING) Anatomical Region Laterality Modality Spine, HIPS, HIPL, HIPR Other Narrative 11/28/2020 9:30 AM SUPERINTENDENT BUILDING PATIENT NAME: Beth Packer DATE OF : [...] or to monitor response to therapy. Danielle Qureshi PA-C [facility] 11/28/2020 Patrick Blas DO DEXA Final Result from Last 3 Months or Most Recently Relevant to Health Maintenance Insurance [facility] [place] BL[place] MR PB ONLY [facility] MEDICARE PART B HB ONLY Advance Directives Documents on File Type Date Recorded Patient Abstract Clerk Expl anation Healthcare Directive 02/24/2021 021 Care Teams Textiles Sales Representative Relationship Specialty Start Date End Date Latha Jiang [place] [address] PCP - General Family Practice 09/05/23
[2025-02-18 22:07] LABS: Basophils Absolute Auto 0.03 K/uL (0.00-0.30); Basophils Percent Auto 0.6 % (0.0-3.0); Eosinophils Absolute Auto 0.18 K/uL (0.00-0.50); Eosinophils Percent Auto 3.7 % (0.0-7.0); Hematocrit 38.6 % (33.0-51.0); Hemoglobin* 12.8 gm/dL (12.0-16.0); Lymphocytes Percent Auto 24.9 % (20-44); Mean Corpuscular HGB Conc 33 gm/dL (32-36); Mean Corpuscular Hemoglobin 31 pg (26-34); Mean Corpuscular Volume 94 fL (80-100); Monocytes Percent Auto 11.2 % (0.0-11.0); Neutrophils Absolute Auto 2.86 K/uL (1.7-7.0); Neutrophils Percent Auto 59.6 % (42.0-72.0); Platelet Count* 303 K/uL (140-440); White Blood Count* 4.81 K/uL (4.50-11.00)
[2025-02-18 22:20] LABS: Slide Review Reflex No
== END 2025-02-18 23:14 | disposition home or self-care (01) ==
PROVIDERS: Emergency Provider Emergency Medicine; PCP Family Medicine
DX: R42 Dizziness and giddiness (principal); H53.2 Diplopia
CPT/HCPCS: 36415; 70450; 71046; 80048; 81001; 83605; 84484; 85025; 87086; 99283; 99284; J7030